=== PATIENT | female | born 1965 | race Hispanic/Latino ===

== ENCOUNTER 2024-04-27 21:29 | Emergency (ER) | payer OTHER ==
[2024-04-27] MEDS ORDERED: hydrALAZINE 20 MG/ML VIAL ONE (21:50)
[2024-04-27] MEDS ORDERED: Prochlorperazine 10 MG/2 ML VIAL ONE (21:50)
[2024-04-27] MEDS ORDERED: diphenhydrAMINE 50 MG/ML VIAL ONE (21:50)
[2024-04-27] MEDS ORDERED: Lorazepam 2 MG/ML VIAL ONE (22:49)
[2024-04-27] MEDS ORDERED: Labetalol HCl 100 MG/20 ML VIAL ONE (23:52)
== END 2024-04-28 00:43 | disposition home or self-care (01) ==
LOC: CSHERS 21:29
DX: I10 Essential (primary) hypertension (principal); E11.9 Type 2 diabetes mellitus without complications; J44.9 Chronic obstructive pulmonary disease, unspecified; F17.210 Nicotine dependence, cigarettes, uncomplicated
CPT/HCPCS: 70450; 96374; 96375; 96376; J0360; J0780; J1200; J2060